=== PATIENT | female | born 1985 | race Caucasian/White ===

== ENCOUNTER 2024-03-11 08:10 | Outpatient (CLI) | payer BC, SELFPAY ==
--- NOTE | ~2024-03-11 | US_ITS ---
EXAMINATION: US pelvic complete DATE: 03/11/2024 08:38 INDICATION: Other specified abnormal uterine and vaginal bleeding. TECHNIQUE: Multiple transabdominal sonographic images of the pelvis were obtained. COMPARISON: None. FINDINGS: The uterus measures 11.6 x 5.2 x 7.2 cm. There is no free fluid in the pelvis. The endometrial comple x measures 5 mm in thickness. There is an intrauterine device in expected position. The right ovary m easures 2.7 x 3.0 x 2.4 cm. The left ovary measures 4.2 x 3.4 x 3.8 cm. There is normal vascular flow in the ovaries. IMPRESSION: 1. Normal pelvis. 2. Intrauterine device in expected position. Reviewed, dictated and finalized at location A.
== END 2024-03-11 08:11 ==
PROVIDERS: PCP Nurse Practitioner; Visit Provider Nurse Practitioner
DX: N93.8 Other specified abnormal uterine and vaginal bleeding (principal); Z97.5 Presence of (intrauterine) contraceptive device
CPT/HCPCS: 76856

== ENCOUNTER 2025-10-09 13:03 | Outpatient (CLI) | payer BC, SELFPAY ==
--- NOTE | ~2025-10-09 | US_ITS ---
EXAMINATION: US pelvic complete INDICATION: Abnormal uterine bleeding Comparison:No prior studies for comparison. TECHNIQUE: Multiple transabdominal and endovaginal sonographic images of the pelvis performed. FINDINGS: The uterus measures 12.6 x 6.4 x 7 cm. IUD present in the endometrium. The endometrial complex measures 6 mm. The right ovary measures 4.1 x 2.2 x 3 cm and the left ovary measures 2.5 x 1.7 x 3.1 cm. There are small follicles in each ovary. Normal doppler signal in both ovaries. There is no free fluid in the pelvis. There are no abnormal masses seen on either side. IMPRESSION: 1. Enlarged uterus. Reviewed, dictated and finalized at location O. [facility] [employer]TER IMPRESSION: 1. Enlarged uterus.
== END 2025-10-09 13:04 | disposition home or self-care (01) ==
LOC: MICIMG 13:04
PROVIDERS: PCP Nurse Practitioner; Visit Provider Nurse Practitioner
DX: N85.2 Hypertrophy of uterus (principal); N93.8 Other specified abnormal uterine and vaginal bleeding
CPT/HCPCS: 76856